=== PATIENT | male | born 1965 | race Two or more races ===

== ENCOUNTER 2019-12-21 06:04 | Emergency (ER) | payer OTHER ==
[~2019-12-21] VITALS: Ht 185.4 cm; Wt 104.3 kg
--- NOTE | 2019-12-21 06:19 | NUR ---
PT BIB [facility] TO ER BED 1 C/O SEIZURE EPISODE. PER EMS REPORT, PT WAS WITNESSED BY A FRIEND WHO HAD ABOUT 1 MINUTE TONIC CLONIC SEIZURE. PT STATES THAT HE HAS HX OF SUBSTANCE ABUSE WITH METH AND ALCOHOL. PT DECIDED TO ADJUST MEDICATION DOSAGE AGAINST MEDICAL ADVICE BECAUSE HE SAID HE FELT DEPRESSED AND TIRED. AAOX4. NO SOB. BREATHING EVENLY AND UNLABORED CONNECTED TO MONITOR. SEIZURE PRECAUTIONS INITIATED.
--- NOTE | 2019-12-21 06:44 | NUR ---
BLOOD DRAWN AND SENT WITH BLOCK ENGRAVER FOR TESTING
--- NOTE | 2019-12-21 06:47 | NUR ---
IV LINE ESTABLISHED 16G LAC
[2019-12-21 06:59] LABS: BASOPHILS % (AUTO) 0.5 % (0.0-2.0); EOSINOPHILS % (AUTO) 1.8 % (0.0-6.0); HEMATOCRIT 40 % (39-51); HEMOGLOBIN 13.8 g/dL (13.5-17.5); LYMPHOCYTES # (AUTO) 2.3 /CMM (0.8-4.8); LYMPHOCYTES % (AUTO) 36.6 % (20.0-44.0); MEAN CORPUSCULAR HGB CONC 34 g/dl (31.0-36.0); MEAN CORPUSCULAR VOLUME 85 fL (80-96); MONOCYTES # (AUTO) 0.4 /CMM (0.1-1.30); MONOCYTES % (AUTO) 6.7 % (2.0-12.0); NEUTROPHILS # (AUTO) 3.4 /CMM (1.8-8.9); NEUTROPHILS % (AUTO) 54.4 % (43.0-81.0); PLATELET COUNT (AUTO) 179 /CMM (150-450); RED BLOOD CELL COUNT(AUTO) 4.73 MIL/uL (4.5-6.0); WHITE BLOOD COUNT (AUTO) 6.3 K/uL (4.3-11.0)
[2019-12-21 07:21] LABS: CARBON DIOXIDE 26 mmol/L (21-32); CHLORIDE 108 mmol/L (98-107); CREATININE 0.9 mg/dL (0.6-1.3); GLUCOSE 98 mg/dL (74-106); POTASSIUM 3.9 mmol/L (3.5-5.1); SODIUM SERUM 142 mmol/L (136-145); UREA NITROGEN, BLOOD 9 mg/dL (7-18)
[2019-12-21 07:26] LABS: ALANINE AMINOTRANSFERASE 22 U/L (12-78); ALBUMIN 3.6 g/dL (3.4-5.0); ALKALINE PHOSPHATASE 46 U/L (46-116); ASPARTATE AMINOTRANSFERASE 17 U/L (15-37); BILIRUBIN,DIRECT 0.1 mg/dL (0.0-0.2); BILIRUBIN,TOTAL 0.6 mg/dL (0.2-1.0); TOTAL PROTEIN, SERUM 6.6 g/dL (6.4-8.2)
[2019-12-21 07:41] LABS: PHENOBARBITAL 1 ug/ml (15-39); PHENYTOIN (DILANTIN) < 0.5 ug/ml (10.0-20.0)
[2019-12-21 07:43] LABS: VALPROIC ACID < 3 ug/mL (50-100)
[2019-12-21] MEDS ORDERED: FOSPHENYTOIN SODIUM PE 100 MG/2 ML VIAL IV ONE (08:00)
[2019-12-21] MEDS ORDERED: ACETAMINOPHEN ES 500 MG TABLET ONE (08:29)
[2019-12-21] MEDS ORDERED: ACETAMINOPHEN ES 500 MG TABLET PO ONE (08:30)
[2019-12-21] MEDS ORDERED: phenytoin SODIUM IV 1,000 MG in IV NS 0.9% 100 ML IV ONE (08:30)
--- NOTE | 2019-12-21 09:47 | NUR ---
PATIENT STATED HE LIVES IN [facility], TAP CARD PROVIDED. PATIENT HAD ADEQUATE CLOTHING. FOOD OFFERED. Patient is ambulatory with steady gait. Refuses offer of correction placement. Patient given list of available shelters in surrounding area.
--- NOTE | 2019-12-21 09:47 | NUR ---
AMBULATORY WITH STEADY GAIT, IV removed. Catheter intact and site benign. Pressure and 4x4 applied to site. No bleeding noted.Patient discharged to home in stable condition. Written and verbal after care instructions given. Patient verbalizes understanding of instruction.
--- NOTE | 2019-12-21 09:49 | NUR ---
Patient given written and verbal discharge instructions. Patient verbalizes understanding of instructions. Patient is ambulatory with steady gait. Refuses offer of mcc placement. Patient given list of available shelters in surrounding area.
[2019-12-21 09:50] VITALS: BP 120/75
== END 2019-12-21 09:50 | disposition home or self-care (01) ==
LOC: ER 06:08
DX: G40.909 Epilepsy, unspecified, not intractable, without status epilepticus (principal)
CPT/HCPCS: 36415; 80048; 80076; 80164; 80184; 80185; 82962; 85025; 96365; 99283; J1165; J7030; J7050